=== PATIENT | male | born 1985 | race Caucasian/White ===

== ENCOUNTER 2018-10-20 12:04 | Emergency (ER) | payer MEDICAID, SELFPAY ==
[2018-10-20 12:06] VITALS: BP 157/87; PULSE 70; RESP 16; TEMP 36.8; O2SAT 97
--- NOTE | 2018-10-20 12:15 | DI.RAD_ITS ---
SYMPTOMS/DIAGNOSIS: STUCK WITH PIECE OF PLYWOOD, RIGHT MID FOREARM, ? FOREIGN BODY RIGHT FOREARM: Two views were obtained. No bony abnormality seen. No definite foreign body seen. If there is a high clinical suspicion of foreign body, additional evaluation with ultrasound could be considered.
--- NOTE | 2018-10-20 12:17 | ED.GENADUL_ITS ---
Discharge Plan Disposition Patient Disposition: HOME Condition: Improving Discharge Details Chief Complaint: Laceration Clinical Impression: Foreign body (FB) in soft tissue Primary Care Provider: Ling Yi ED Provider: Stefani Blair Home Meds and New Rx's Prescriptions: New cephalexin [Keflex] 500 mg capsule 500 mg PO QID 10 Days Qty: 40 RF: 0 Continued meclizine 25 MG tablet,chewable 25 mg PO Q6H PRN (Reason: Dizziness) Qty: 15 RF: 0 gabapentin 300 MG capsule 100 mg PO TID RF: 0 escitalopram oxalate [Lexapro] 10 MG tablet 10 mg PO DAILY RF: 0 tizanidine 6 MG capsule 6 mg PO QID RF: 0 Discharge Instructions Instructions: Soft Tissue Foreign Body (ED), Puncture Wound (ED) Additional Instructions: Take the antibiotics until finished. Keep wound clean, dry and covered. Follow-up with your primary care doctor in 2 days for wound reevaluation. Return immediately to the emergency department any worsening or concerning symptoms such as fever, increased pain, redness, swelling or red streaking up the arm. Discharge Data Discharge Physician: Stefani Blair Medical Decision Making 33-year-old male who presents with possible piece of wood foreign body in mid forearm while work day. There is a tender linear palpable indurated possible foreign body subcutaneous at the mid forearm just proximal to the open puncture wound. Unclear if this is a definite foreign body. Will obtain a.m. x-ray and reassess. Tetanus up-to-date 1315 --x-ray negative for foreign body. Ultrasound obtained for further evaluation and this did note an echogenic foreign body consistent with likely a piece of wood in the area of pain. Able to make a 2 cm superficial incision and remove the piece of wood successfully. Area was irrigated well and loosely closed with Steri-Strips. Patient sent with prescription for Keflex. He is instructed on good wound care. He is instructed to follow with his primary care doctor and return here at any time if worse. HPI General Mode of arrival: ambulatory . Date/Time Provider Initiated Documentation: 10/20/18 12:07 . Limitations to Documentation: no limitations . Information obtained by: patient . HPI Narrative: Patient is a 33-year-old male presents with possible piece of wood foreign body within forearm that he sust ained while working with plywood today. Patient states a piece of plywood he believes came off and punctured his mid forearm and is now still present under the skin. Tetanus up-to-date. Related Data Home Medications Medication Instructions Recorded Confirmed escitalopram oxalate [Lexapro] 10 mg PO DAILY 06/03/16 10/20/18 gabapentin 100 mg PO TID 06/03/16 10/20/18 tizanidine 6 mg PO QID 06/03/16 10/20/18 meclizine 25 mg PO Q6H PRN #15 tab.chew 12/24/16 10/20/18 cephalexin [Keflex] 500 mg PO QID 10 Days #40 cap 10/20/18 Previous Rx's Medication Instructions Recorded meclizine 25 mg PO Q6H PRN #15 tab.chew 12/24/16 cephalexin [Keflex] 500 mg PO QID 10 Days #40 cap 10/20/18 Allergies Allergy/AdvReac Type Severity Reaction Status Date / Time No Known Allergies Allergy Unverified 10/20/18 12:13 General Stated Complaint: Laceration ROSALVA: 4 Review of Systems Review of Systems All systems reviewed & are unremarkable except as noted in HPI and below PFSH Medical History Compression of intervertebral disc (Acute) Surgical History History of tonsillectomy (Chronic) Social History Smoking/Tobacco Use Status: Current every day Alcohol Intake: current Alcohol Intake frequency: holidays/special occasions only Drug use: Never Do you feel safe at home: Yes Do you feel safe in your relationship?: Yes Exam Const General: cooperative, healthy appearing and no acute distress HENMT Head: normal to inspection Mouth: oral mucosae normal Eyes General: appearance normal, both eyes and all related structures Neck Neck: normal visual inspection Resp Effort & Inspection: normal respiratory effort and able to speak in complete sentences Cardio Rate: regular rate Skin General skin exam: no rashes or lesions noted Neuro General: alert, awake and oriented x3 Motor: muscle tone normal throughout Extrem Other: Superficial abrasions and a 2 mm circular superficial open wound noted on right volar mid forearm. There is an area that is hard, linear and palpable just proximal to the open wound extending approximately 3 cm of right forearm directly under the skin and tender to palpation. Psych Appearance: grossly normal Affect: normal affect Course Vital Signs Temperature 98.2 F 10/20/18 12:06 Pulse 70 10/20/18 12:06 Respiratory Rate 16 10/20/18 12:06 Blood Pressure 157/87 H 10/20/18 12:06 Pulse Oximetry 97 10/20/18 12:06 Temperature 98.2 F 10/20/18 12:06 Temperature Source Skin 10/20/18 12:06 Pulse 70 10/20/18 12:06 Respiratory Rate 16 10/20/18 12:06 Respiratory Effort Non-Labored 10/20/18 12:11 Blood Pressure 157/87 H 10/20/18 12:06 Pulse Oximetry 97 10/20/18 12:06 Oxygen Delivery Method Room Air 10/20/18 12:06 Oxygen Flow Rate 0 10/20/18 12:06 Pain Level 7 10/20/18 12:06 Procedures Foreign Body Removal Time Out Performed: yes Site: right Description of foreign body: other (wood) Sedation/Analgesia: other (local infiltration with lidocaine 1% w/o epi - 5cc) Technique: removal with forceps (2cm superficial incision made with #11 blade) Confirmed by:: direct visualization Complications: none Post-procedure exam: awake, alert Neurovascular: normal distal pulse
--- NOTE | 2018-10-20 13:22 | DI.US_ITS ---
SYMPTOMS/DIAGNOSIS: ASSESS FOR PIECE OF WOOD IN MID FOREARM SOFT TISSUE ULTRASOUND, RIGHT FOREARM: Soft tissue ultrasound was performed to evaluate an area of suspected foreign body in the superficial soft tissues of the right forearm. There is a questionable palpable abnormality and this corresponds to an elongated echogenic focus identified ultrasonographically. The findings are consistent with foreign body; this is likely to represent a plywood splinter by history.
== END 2018-10-20 13:51 | disposition home or self-care (01) ==
PROVIDERS: Emergency Provider Physician Assistant
DX: S50.851A Superficial foreign body of right forearm, initial encounter (principal); W45.8XXA Other foreign body or object entering through skin, initial encounter
CPT/HCPCS: 10120; 76881; 73090

== ENCOUNTER 2019-02-15 08:08 | Emergency (ER) | payer MEDICAID, SELFPAY ==
[2019-02-15 08:13] VITALS: BP 137/78; PULSE 70; RESP 18; TEMP 37; O2SAT 99
--- NOTE | 2019-02-15 08:34 | ED.GENADUL_ITS ---
Discharge Plan Disposition Patient Disposition: HOME Discharge Details Chief Complaint: Orthopedic Clinical Impression: Flexor tenosynovitis of finger Primary Care Provider: Ling Yi ED Provider: Shaheed Aquino Home Meds and New Rx's Prescriptions: New amoxicillin-pot clavulanate [Augmentin] 875-125 mg tablet 1 tab PO BID Qty: 20 RF: 0 Continued meclizine 25 MG tablet,chewable 25 mg PO Q6H PRN (Reason: Dizziness) Qty: 15 RF: 0 naproxen 250 mg Tablet 250 mg PO BID PRNRF: 0 gabapentin 300 MG capsule 100 mg PO TID RF: 0 escitalopram oxalate [Lexapro] 10 MG tablet 10 mg PO DAILY RF: 0 tizanidine 6 MG capsule 6 mg PO QID RF: 0 Discharge Instructions Instructions: How to Stop Smoking (ED), Cigarette Smoking and Your Health (GEN), Tenosynovitis (ED) Additional Instructions: Please take the full course of antibiotics as prescribed. Follow-up with orthopedics if symptoms persist greater than 24 hours. Return to the ER for any worsening or new concerning symptoms. Referrals: Efrain Betancourt MD [ [facility] STAFF PHYSICIAN] - Discharge Data Discharge Date/Time-TO BE ENTERED AT DEPARTURE: 02/15/19 08:59 Medical Decision Making 33-year-old male here 1 day after accidentally puncturing his left hand just proximal to fourth metacarpal with a metal tool. Tenderness and swelling about the puncture site and involving the proximal fourth digit. Digit is not sausage appearing. He is able to flex and extend his fingers fully but does have discomfort on passive hyperextension. No systemic symptoms. Suspect early flexor tenosynovitis. Plan to treat with Augmentin and have the patient follow-up with orthopedics. xray of the hand interpreted by me: No fracture, no air in the soft tissue Tetanus is up-to-date. Smoking cessation was discussed with the patient. He is motivated to quit. I encouraged him to establish primary care follow-up at the [place] for assistance in this. Usual and customary discharge instructions were provided. Patient understands importance of timely follow-up. HPI General Mode of arrival: ambulatory . Date/Time Provider Initiated Documentation: 02/15/19 08:32 . Limitations to Documentation: no limitations . Information obtained by: patient . HPI Narrative: 33-year-old male here with swelling and pain of his left hand after he sustained puncture wound working with a metal tool at home yesterday. Patient notes increased swelling and pain of the left fourth digit. Pain is worse when he extends his fourth digit. No associated fever. Tetanus is up-to-date per patient and prior medical record notes 2011. Related Data Home Medications Medication Instructions Recorded Confirmed escitalopram oxalate [Lexapro] 10 mg PO DAILY 06/03/16 02/15/19 gabapentin 100 mg PO TID 06/03/16 02/15/19 tizanidine 6 mg PO QID 06/03/16 02/15/19 meclizine 25 mg PO Q6H PRN #15 tab.chew 12/24/16 02/15/19 amoxicillin-pot clavulanate 1 tab PO BID #20 tab 02/15/19 [Augmentin] naproxen 250 mg PO BID PRN 02/15/19 02/15/19 Previous Rx's Medication Instructions Recorded meclizine 25 mg PO Q6H PRN #15 tab.chew 12/24/16 amoxicillin-pot clavulanate 1 tab PO BID #20 tab 02/15/19 [Augmentin] Allergies Allergy/AdvReac Type Severity Reaction Status Date / Time No Known Allergies Allergy Unverified 10/20/18 12:13 General Stated Complaint: Orthopedic ROSALVA: 4 Review of Systems Constitutional Denies fever(s) ENT Denies dizziness Gastrointestinal Denies nausea Integumentary/Breasts Reports as per HPI Neurologic Denies dizziness PFSH Medical History Compression of intervertebral disc (Acute) Surgical History History of tonsillectomy (Chronic) Social History Smoking/Tobacco Use Status: Current every day Tobacco Type: cigarettes Alcohol Intake: current Alcohol Intake frequency: holidays/special occasions only Drug use: Never Substance use type: does not use Do you feel safe at home: Yes Do you feel safe in your relationship?: Yes Exam Const General: cooperative and no acute distress Cardio Rate: regular rate Rhythm: regular rhythm Skin Rashes: rashes noted (mild erythema about puncture wound and palm hand) Trauma: puncture (tiny prox lt 4th MCP) Neuro General: alert, awake and tone normal Extrem General: edema Left upper extremity: hand Details: normal capillary refill, neuromotor exam normal, neurosensory exam normal, tendon exam normal, tenderness Location: of the 4th digit (prox to MCP with swelling) and swelling Location: of the 4th digit Location: at the MCP joint Course Vital Signs Temperature 37.0 C 02/15/19 08:13 Pulse 70 02/15/19 08:13 Respiratory Rate 18 02/15/19 08:13 Blood Pressure 137/78 02/15/19 08:13 Pulse Oximetry 99 02/15/19 08:13 Temperature 37.0 C 02/15/19 08:13 Temperature Source Skin 02/15/19 08:13 Pulse 70 02/15/19 08:13 Respiratory Rate 18 02/15/19 08:13 Respiratory Effort Non-Labored 02/15/19 08:21 Blood Pressure 137/78 02/15/19 08:13 Blood Pressure Position Sitting 02/15/19 08:13 Pulse Oximetry 99 02/15/19 08:13 Oxygen Delivery Method Room Air 02/15/19 08:13 Oxygen Flow Rate 0 02/15/19 08:13 Pain Level 4 02/15/19 08:13
[2019-02-15] MEDS: Amoxicillin 875/Clav. 125 TAB PO (08:36)
--- NOTE | 2019-02-15 08:57 | DI.RAD_ITS ---
SYMPTOMS/DIAGNOSIS: PUNCTURE WOUND LEFT HAND: No fracture or dislocation is seen. IMPRESSION: Negative left hand.
--- NOTE | 2019-02-15 09:20 | DI.VRAD_ITS ---
EXAM: XR Left Hand EXAM DATE/TIME: 02/15/2019 8:34 AM CLINICAL HISTORY: 33 years old, male; Pain; Hand; Left; Patient HX: Puncture wound center of palm TECHNIQUE: Imaging protocol: XR Left hand. Views: 3 or more views. COMPARISON: US soft tissue extremity 10/20/2018 1:33 PM FINDINGS: Bones/joints: Normal. There is no evidence of acute fracture.There is no evidence of malalignment or dislocation. Soft tissues: Normal. IMPRESSION: No acute findings. Dictated and Authenticated by: Gracie Estrada MD. Ordering:REYNALDO Hummel MD
== END 2019-02-15 08:59 | disposition home or self-care (01) ==
PROVIDERS: Emergency Provider Student in an Organized Health Care Education/Training Program
DX: M65.842 Other synovitis and tenosynovitis, left hand (principal); W26.8XXA Contact with other sharp object(s), not elsewhere classified, initial encounter
CPT/HCPCS: 99283; 73130

== ENCOUNTER 2021-06-17 09:21 | Emergency (ER) | payer MEDICAID, SELFPAY ==
[2021-06-17 09:30] VITALS: BP 143/73; PULSE 60; RESP 18; TEMP 36.7; O2SAT 98
[2021-06-17] MEDS: Tetracaine 0.5% 4 ML BTL (09:46)
[2021-06-17] MEDS: Balanced Salt Solution 15 ML BTL (09:46)
[2021-06-17] MEDS: Fluorescein STRIPS 100/BOX 1 MG (09:46)
--- NOTE | 2021-06-17 09:58 | W.ED.GENAD ---
Discharge Plan Disposition Patient Disposition: HOME Condition: Stable Discharge Details Clinical Impression: Foreign body in cornea, left eye, initial encounter, Corneal abrasion, left Primary Care Provider: Ling Yi ED Provider: Radha Guevara Home Meds and New Rx's Prescriptions: No Action meclizine 25 MG tablet,chewable 25 mg PO Q6H PRN (Reason: Dizziness) Qty: 15 RF: 0 naproxen 250 mg Tablet 250 mg PO BID PRNRF: 0 amoxicillin-pot clavulanate [Augmentin] 875-125 mg tablet 1 tab PO BID Qty: 20 RF: 0 bupropion HCl 100 mg Tablet 100 mg PO DAILY RF: 0 gabapentin 300 MG capsule 100 mg PO TID RF: 0 escitalopram oxalate [Lexapro] 10 MG tablet 10 mg PO DAILY RF: 0 tizanidine 6 MG capsule 6 mg PO QID RF: 0 Discharge Instructions Instructions: Corneal Abrasion (ED), Eye Foreign Body (ED) Additional Instructions: I was unable to completely remove the foreign body noted. Use antibiotic ointment as directed place a ribbon to the lower eyelid 4 times daily while awake. Please follow-up with [facility] eye [facility] call on Saturday to make an appointment within the next few days. You may patch your left eye or wear sunglasses. Try not to rub your eye. [address] [id number] Please take Tylenol or Ibuprofen with food every 4-6 hours as needed for pain and swelling. Stand Alone Forms: Work Release Discharge Data Discharge Date/Time-TO BE ENTERED AT DEPARTURE: 06/17/21 10:31 Medical Decision Making 34-year-old male with foreign body to left eye presumed metal after working with some metal on . He reports waking up with irritation today. Foreign body visualized to the left pupil. Attempted to remove manually with 18-gauge needle bevel which was unsuccessful. Partial removal was obtained there is still some retained foreign body. We will place patient on antibiotics ointment and referred to [facility] eye [facility] on Saturday. This text was generated using [employer] system, please disregard any oddities of phrase or misspellings. HPI General Mode of arrival: ambulatory. Date/Time Provider Initiated Documentation: 06/17/21 09:47. Limitations to Documentation: no limitations. Information obtained by: patient and RN notes reviewed. HPI Narrative: 5-year-old male presents to the ER chief complaint of possible foreign body to the left eye. Patient reports he was working with metal on woke up this morning with some irritation. He also reports some blurry vision. Upon initial exam he does have a small foreign body noted to the central of his left pupil. Conjunctive is injected. Related Data Home Medications Medication Instructions Recorded Confirmed escitalopram oxalate [Lexapro] 10 mg PO DAILY 06/03/16 06/17/21 gabapentin 100 mg PO TID 06/03/16 06/17/21 tizanidine 6 mg PO QID 06/03/16 02/15/19 meclizine 25 mg PO Q6H PRN #15 tab.chew 12/24/16 06/17/21 amoxicillin-pot clavulanate 1 tab PO BID #20 tab 02/15/19 [Augmentin] naproxen 250 mg PO BID PRN 02/15/19 06/17/21 bupropion HCl 100 mg PO DAILY 06/17/21 06/17/21 Previous Rx's Medication Instructions Recorded meclizine 25 mg PO Q6H PRN #15 tab.chew 12/24/16 amoxicillin-pot clavulanate 1 tab PO BID #20 tab 02/15/19 [Augmentin] Allergies Allergy/AdvReac Type Severity Reaction Status Date / Time No Known Allergies Allergy Unverified 06/17/21 09:33 General Stated Complaint: EyeProblem ROSALVA: 4 Review of Systems All systems reviewed & are unremarkable except as noted in HPI and below Eyes Eyes: Reports irritation and Reports other (Foreign body sensation in the left eye) PFSH All Active Problems (Updated 06/17/21 @ 10:17 by Radha Guevara) Foreign body in cornea, left eye, initial encounter (Acute) Corneal abrasion, left (Acute) Medical History (Updated 06/17/21 @ 10:17 by Radha Guevara) Compression of intervertebral disc Surgical History History of tonsillectomy Social History Smoking/Tobacco Use Status: Current every day Tobacco Type: cigarettes Smoking risk assessment performed?: Yes Alcohol Intake: current Alcohol Intake frequency: holidays/special occasions only Drug use: Never Substance use type: does not use Do you feel safe at home: Yes Do you feel safe in your relationship?: Yes Exam Eyes Alignment and Position: alignment normal Periorbital: periorbital findings normal Eyelids: eyelids normal Conjunctivae: conjunctival abnormality left conjunctival injection Cornea: corneas abnormal on the left fluorescein used, abrasion central and at the following clock position (3 o clock) and foreign body metallic; without a rust ring and fluorescein used Pupils: PERRL Eyes/upper lids images: 1. Foreign body 2. Corneal abrasion Course Vital Signs Vital signs: Vital Signs Temperature 36.7 C 06/17/21 09:30 Pulse 60 06/17/21 09:30 Respiratory Rate 18 06/17/21 09:30 Blood Pressure 143/73 H 06/17/21 09:30 Pulse Oximetry 98 06/17/21 09:30 Temperature 36.7 C 06/17/21 09:30 Temperature Source Temporal Artery Scan 06/17/21 09:30 Pulse 60 06/17/21 09:30 Respiratory Rate 18 06/17/21 09:30 Respiratory Effort Non-Labored 06/17/21 09:36 Blood Pressure 143/73 H 06/17/21 09:30 Blood Pressure Position Sitting 06/17/21 09:30 Pulse Oximetry 98 06/17/21 09:30 Oxygen Delivery Method Room Air 06/17/21 09:30 Oxygen Flow Rate 0 06/17/21 09:30 Procedures FB Removal Eye Time Out performed: No Location: eye (L) Topical anesthetic used: tetracaine Foreign body: metal Evidence of corneal penetration: No Technique: irrigation, cotton tip swab and needle (18 ga) Procedure performed under: direct visualization with magnification Post-procedure medication: ophthalmic antibiotic Patient tolerated procedure: well Complications: incomplete foreign body removal PAWSS Have you Been Recently Intoxicated or Drunk Within the Last 30 days?: No Have you Ever Experienced Previous Episodes of Alcohol Withdrawal?: No Have you ever Experienced Withdrawal Seizures?: No Have you ever Experienced Delirium Tremens(DT)s?: No Have you ever undergone Alcohol Rehabilitation Treatment (i.e, inpt ot outpatient treatment programs)?: No Have you ever Experienced Blackouts?: No Have you ever Combined Alcohol with other Downers within the last 90 days?: No Have you ever Combined Alcohol with any other Substance of Abuse during the last 90 days?: No Positive Blood Alcohol level on Presentation? [PCS.BAL]: No Evidence of Increased Autonomic Activity (i.e. HR>120, tremor, sweating, agitation, nausea)?: No Result: 0
[2021-06-17] MEDS: Erythromycin Ophth Oint 3.5 GM TUBE OP (10:25)
== END 2021-06-17 10:31 | disposition home or self-care (01) ==
PROVIDERS: Emergency Provider Registered Nurse Emergency
DX: T15.02XA Foreign body in cornea, left eye, initial encounter (principal); X58.XXXA Exposure to other specified factors, initial encounter
CPT/HCPCS: 65220

== ENCOUNTER 2021-09-18 18:33 | Emergency (ER) | payer MEDICAID, SELFPAY ==
[2021-09-18 18:39] VITALS: BP 158/89; PULSE 77; RESP 18; O2SAT 97
--- NOTE | 2021-09-18 18:58 | ED.GENADUL_ITS ---
Discharge Plan Disposition Patient Disposition: HOME Condition: Improving Discharge Details Clinical Impression: Cellulitis of finger, right Primary Care Provider: Ling Yi ED Provider: Efrain Parker Home Meds and New Rx's Prescriptions: New cephalexin 500 mg capsule 500 mg PO TID 7 Days Qty: 21 0RF Continued meclizine 25 MG tablet,chewable 25 mg PO Q6H PRN (Reason: Dizziness) Qty: 15 0RF naproxen 250 mg Tablet 250 mg PO BID PRN0RF bupropion HCl 100 mg Tablet 100 mg PO DAILY 0RF gabapentin 300 MG capsule 100 mg PO TID 0RF escitalopram oxalate [Lexapro] 10 MG tablet 10 mg PO DAILY 0RF tizanidine 6 MG capsule 6 mg PO QID 0RF Discontinued amoxicillin-pot clavulanate [Augmentin] 875-125 mg tablet 1 tab PO BID Qty: 20 0RF Discharge Instructions Instructions: Cellulitis (ED) Additional Instructions: Elevate above the level of the heart to decrease pain and swelling. Tylenol as needed for discomfort. Take antibiotics every 6 hours for the first 4 doses and then 3 times daily until finished. Return for any acute concerns. Warm soaks to help speed healing. Medical Decision Making 36-year-old male who abraded the dorsum of his right index finger days ago and now has 2 days of right index finger erythema and swelling. No proximal lymphangitic spread, no systemic signs or symptoms of infection. He does have a developing cellulitis and will merit treatment with oral antibiotics. He is stable and appropriate for discharge home at this time. HPI General Mode of arrival: ambulatory . Date/Time Provider Initiated Documentation: 09/18/21 18:34 . Limitations to Documentation: no limitations . Information obtained by: patient . History of Present Illness 36 year old M presents to the emergency department with the chief complaint of Right index finger swelling and erythema, described as mild, Quality is described as dull and constant, and is localized to the right and upper extremity. Patient reports no radiation. Patient started experiencing this hour(s) and it has been constant. improves with No relieving factors improve symptom(s), No exacerbating factors reported . Patient notes denies fever/chills and weakness. Patient did receive the following treatments prior to arrival, none Related Data Home Medications Medication Instructions Recorded Confirmed escitalopram oxalate 10 mg tablet 10 mg PO DAILY 06/03/16 09/18/21 (Lexapro) gabapentin 300 mg capsule 100 mg PO TID 06/03/16 09/18/21 tizanidine 6 mg capsule 6 mg PO QID 06/03/16 09/18/21 meclizine 25 mg chewable tablet 25 mg PO Q6H PRN #15 tab.chew 12/24/16 06/17/21 naproxen 250 mg tablet 250 mg PO BID PRN 02/15/19 09/18/21 bupropion HCl 100 mg tablet 100 mg PO DAILY 06/17/21 09/18/21 cephalexin 500 mg capsule 500 mg PO TID 7 Days #21 cap 09/18/21 Previous Rx's Medication Instructions Recorded meclizine 25 mg chewable tablet 25 mg PO Q6H PRN #15 tab.chew 12/24/16 cephalexin 500 mg capsule 500 mg PO TID 7 Days #21 cap 09/18/21 Allergies Allergy/AdvReac Type Severity Reaction Status Date / Time No Known Allergies Allergy Unverified 09/18/21 18:42 General Stated Complaint: Cellulitis ROSALVA: 4 Review of Systems Narrative: No fever or chills. No numbness or tingling. Otherwise well. PFSH All Active Problems (Updated 09/18/21 @ 19:00 by Efrain Parker MD) Cellulitis of finger, right (Acute) Medical History (Updated 09/18/21 @ 19:00 by Efrain Parker MD) Compression of intervertebral disc Surgical History History of tonsillectomy Social History Smoking/Tobacco Use Status: Current every day Tobacco Type: cigarettes Smoking risk assessment performed?: Yes Alcohol Intake: current Alcohol Intake frequency: holidays/special occasions only Drug use: Never Substance use type: does not use Do you feel safe at home: Yes Do you feel safe in your relationship?: Yes Exam Narrative Exam Narrative: GEN: awake, alert, oriented 3. Pleasant, well groomed, interactive. HEAD: Normocephalic, atraumatic EYES: PERRL, EOMI EXT: Full ROM, right index finger erythematous and mild swelling. Abrasion overlying proximal phalanx dorsal aspect, 1 to 2 mm in diameter Neuro: Grossly normal neurologic exam, conversant, interactive. Psych: Speech fluent, thoughts congruent, affect normal Course Vital Signs Vital signs: Vital Signs Pulse 77 09/18/21 18:39 Respiratory Rate 18 09/18/21 18:39 Blood Pressure 158/89 H 09/18/21 18:39 Pulse Oximetry 97 09/18/21 18:39 Pulse 77 09/18/21 18:39 Respiratory Rate 18 09/18/21 18:39 Respiratory Effort Non-Labored 09/18/21 18:44 Blood Pressure 158/89 H 09/18/21 18:39 Blood Pressure Position Sitting 09/18/21 18:39 Pulse Oximetry 97 09/18/21 18:39 Oxygen Delivery Method Room Air 09/18/21 18:39 Oxygen Flow Rate 0 09/18/21 18:39
[2021-09-18 19:09] VITALS: BP 158/89; PULSE 77; RESP 18; O2SAT 97
[2021-09-18] MEDS: Cephalexin 500 MG CAP, 4 CAPS/BTL PO (19:10)
== END 2021-09-18 19:09 | disposition home or self-care (01) ==
PROVIDERS: Emergency Provider Emergency Medicine
DX: L03.011 Cellulitis of right finger (principal)
CPT/HCPCS: 99283

== ENCOUNTER 2021-10-01 08:24 | Emergency (ER) | payer MEDICAID, SELFPAY ==
[2021-10-01 08:29] VITALS: BP 157/81; PULSE 65; RESP 16; TEMP 36.6; O2SAT 99
--- NOTE | 2021-10-01 08:30 | DI.RAD_ITS ---
Exam(s) XR FINGER RT INDEX EXAM: XR FINGER RT INDEX CLINICAL HISTORY: recent cellulitis, now dropped drill on finger. TECHNIQUE: 2D digital imaging was performed. COMPARISON: CR XR hand LT complete from 02/15/2019 FINDINGS: 3 views There is soft tissue swelling around the region of the proximal interphalangeal joint. There is no e vidence of fracture or dislocation nor radiopaque foreign body. No osseous lesions nor erosions. No radiographic evidence of osteomyelitis. IMPRESSION: Soft tissue swelling. No fracture nor other significant osseous findings.. No radiopaque foreign manjit dy. DATA REPOSITORY: RADIATION DOSE DELIVERED:
--- NOTE | 2021-10-01 08:59 | W.ED.GENAD ---
Discharge Plan Disposition Patient Disposition: HOME Condition: Stable Discharge Details Clinical Impression: Contusion of right index finger Primary Care Provider: Tate Cowan ED Provider: Benjie Ca Home Meds and New Rx's Prescriptions: New sulfamethoxazole-trimethoprim [Bactrim DS] 800-160 mg tablet 1 tab PO BID 9 Days Qty: 18 0RF Continued meclizine 25 MG tablet,chewable 25 mg PO Q6H PRN (Reason: Dizziness) Qty: 15 0RF naproxen 250 mg Tablet 250 mg PO BID PRN0RF bupropion HCl 100 mg Tablet 100 mg PO DAILY 0RF gabapentin 300 MG capsule 100 mg PO TID 0RF escitalopram oxalate [Lexapro] 10 MG tablet 10 mg PO DAILY 0RF tizanidine 6 MG capsule 6 mg PO QID 0RF Discharge Instructions Instructions: Cellulitis (ED) Additional Instructions: X-ray does not reveal any obvious bony abnormality. While this very well may be simply trauma, difficult to say if there is not a mild amount of residual infection. Bactrim as directed. Warm soaks and/or compresses every 2 hours for 20 minutes. Please watch for new or worsening symptoms and return to the ER for any concerns. Lastly, I have given you the name and number of our orthopedic team, if symptoms not improving over the next 7-10 days with conservative measures, please follow-up with them. Referrals: Antolin Hui MD [ [facility]FF PHYSICIAN] - Medical Decision Making 36-year-old gentleman, [id number], reports finger infection on 09-18, seen in the ER and finished a regimen of Keflex. Reports symptoms had almost completely resolved but yesterday dropped impact wrench on his hand. Denies any other injury, fever, numbness, tingling, weakness. Plan is to obtain x-ray and reassess X-ray unremarkable for any bony abnormality. Discussed findings with patient. He declined splint. Difficult to ascertain whether this is simply trauma related or if there could be a component of residual infection. Patient feels as though there may still be a small infection and would be open to initiating antibiotics. Plan is to give 10 days worth of Bactrim, discussed conservative measures, and will refer to orthopedics if no improvement with conservative measures. Encouraged to return to the ER for new or worsening symptoms. This documentation was generated using [employer] system, please disregard any oddities of phrase or misspellings. Medical Records Medical records reviewed: Yes I reviewed the patient's medical records. Imaging Data Radiologic Study: Attestation: I personally reviewed and interpreted this imaging study as follows: Imaging: X-Ray Radiologist's impression: PROCEDURE INFORMATION: Exam: XR Right Finger(s) Exam date and time: 10/01/2021 8:53 AM Age: 36 years old Clinical indication: Injury or trauma; Other: Recent cellulitis, now dropped drill on finger; Blunt trauma (contusions or hematomas); Right; Index finger TECHNIQUE: Imaging protocol: XR Right fingers. Views: Minimum 2 views. COMPARISON: CR XR forearm RT 10/20/2018 12:23 PM FINDINGS: Bones/joints: There is no evidence of acute fracture.There is no evidence of malalignment or dislocation. Soft tissues: Soft tissue swelling of the finger. IMPRESSION: 1. Soft tissue swelling of the finger. 2. There is no evidence of acute fracture.There is no evidence of malalignment or dislocation. [facility] General Mode of arrival: ambulatory. Date/Time Provider Initiated Documentation: 10/01/21 08:25. Limitations to Documentation: no limitations. Information obtained by: patient. History of Present Illness 36 year old M presents to the emergency department with the chief complaint of R index finger pain, described as moderate, with intensity rated at 4. Quality is described as aching, and is localized to the right and upper extremity. Patient reports no radiation. Patient started experiencing this day(s) (1) and it has been constant. improves with No relieving factors improve symptom(s), Movement worsens symptoms . Patient notes no other symptoms.. Patient did receive the following treatments prior to arrival, none Related Data Home Medications Medication Instructions Recorded Confirmed escitalopram oxalate 10 mg tablet 10 mg PO DAILY 06/03/16 10/01/21 (Lexapro) gabapentin 300 mg capsule 100 mg PO TID 06/03/16 10/01/21 tizanidine 6 mg capsule 6 mg PO QID 06/03/16 10/01/21 meclizine 25 mg chewable tablet 25 mg PO Q6H PRN #15 tab.chew 12/24/16 10/01/21 naproxen 250 mg tablet 250 mg PO BID PRN 02/15/19 10/01/21 bupropion HCl 100 mg tablet 100 mg PO DAILY 06/17/21 10/01/21 sulfamethoxazole 800 1 tab PO BID 9 Days #18 tab 10/01/21 mg-trimethoprim 160 mg tablet (Bactrim DS) Previous Rx's Medication Instructions Recorded meclizine 25 mg chewable tablet 25 mg PO Q6H PRN #15 tab.chew 12/24/16 sulfamethoxazole 800 1 tab PO BID 9 Days #18 tab 10/01/21 mg-trimethoprim 160 mg tablet (Bactrim DS) Allergies Allergy/AdvReac Type Severity Reaction Status Date / Time No Known Allergies Allergy Unverified 10/01/21 08:33 General Stated Complaint: Cellulitis ROSALVA: 4 Review of Systems Constitutional Constitutional: Denies fever(s) and Denies weakness Musculoskeletal Musculoskeletal: Denies deformity, Reports arthralgias, Denies numbness, Reports stiffness and Denies tingling Integumentary/Breasts Skin/Breast: Denies rash Neurologic Neurologic: Denies numbness, Denies tingling and Denies weakness PFSH All Active Problems Cellulitis of finger, right (Acute) Contusion of right index finger (Acute) Medical History Compression of intervertebral disc Surgical History History of tonsillectomy Social History Smoking/Tobacco Use Status: Current every day Tobacco Type: cigarettes Smoking risk assessment performed?: Yes Alcohol Intake: current Alcohol Intake frequency: holidays/special occasions only Drug use: Never Substance use type: does not use Do you feel safe at home: Yes Do you feel safe in your relationship?: Yes Exam Const General: cooperative, healthy appearing, comfortable and no acute distress Orientation: alert and awake HENCO Head: normal to inspection, normocephalic and atraumatic Eyes Conjunctivae: conjunctivae normal Neck Neck: normal visual inspection, trachea midline and supple Resp Effort & Inspection: normal respiratory effort and able to speak in complete sentences Cardio Rate: regular rate Rhythm: regular rhythm Skin Rashes: no rashes Neuro General: patient alert, patient awake, moves all extremities and no focal motor deficits Cognition: normal cognition Speech: speech normal Gait: normal gait Motor: muscle tone normal throughout Sensory Exam: no sensory deficits noted Extrem General: capillary refill normal Other: Right hand index finger extensor aspect of the PIP with minimal swelling, erythema, tenderness. Full extension, near full flexion but slightly limited secondary to pain and swelling. Neuro, vascular, tendon intact. Skin intact. No drainage, lymphangitic streaking, induration or fluctuance. Normal radial pulse and capillary refill. Psych Appearance: grossly normal Mental Status: mental status grossly normal Course Vital Signs Vital signs: Vital Signs Temperature 36.6 C 10/01/21 08:29 Pulse 65 10/01/21 08:29 Respiratory Rate 16 10/01/21 08:29 Blood Pressure 157/81 H 10/01/21 08:29 Pulse Oximetry 99 10/01/21 08:29 Temperature 36.6 C 10/01/21 08:29 Temperature Source Temporal Artery Scan 10/01/21 08:29 Pulse 65 10/01/21 08:29 Respiratory Rate 16 10/01/21 08:29 Respiratory Effort 10/01/21 08:29 Blood Pressure 157/81 H 10/01/21 08:29 Blood Pressure Position Sitting 10/01/21 08:29 Pulse Oximetry 99 10/01/21 08:29 Oxygen Delivery Method Room Air 10/01/21 08:29 Oxygen Flow Rate 0 10/01/21 08:29 Pain Level 5 10/01/21 08:29
--- NOTE | 2021-10-01 09:03 | DI.VRAD_ITS ---
PROCEDURE INFORMATION: Exam: XR Right Finger(s) Exam date and time: 10/01/2021 8:53 AM Age: 36 years old Clinical indication: Injury or trauma; Other: Recent cellulitis, now dropped drill on finger; Blunt trauma (contusions or hematomas); Right; Index finger TECHNIQUE: Imaging protocol: XR Right fingers. Views: Minimum 2 views. COMPARISON: CR XR forearm RT 10/20/2018 12:23 PM FINDINGS: Bones/joints: There is no evidence of acute fracture.There is no evidence of malalignment or dislocation. Soft tissues: Soft tissue swelling of the finger. IMPRESSION: 1. Soft tissue swelling of the finger. 2. There is no evidence of acute fracture.There is no evidence of malalignment or dislocation. Dictated and Authenticated by: Gracie Estrada MD. Ordering:SHAR Waldrop MD
[2021-10-01] MEDS: Sulfameth/Trimeth DS, 2 TABS/BTL 1 TAB PO (09:09)
== END 2021-10-01 09:13 | disposition home or self-care (01) ==
PROVIDERS: Emergency Provider Physician Assistant; PCP Nurse Practitioner Family
DX: S60.021A Contusion of right index finger without damage to nail, initial encounter (principal); W22.8XXA Striking against or struck by other objects, initial encounter; L03.011 Cellulitis of right finger
CPT/HCPCS: 99283; 73140

== ENCOUNTER 2022-02-01 17:58 | Emergency (ER) | payer MEDICAID, SELFPAY ==
--- NOTE | 2022-02-01 18:00 | DI.RAD_ITS ---
Exam(s) XR ANKLE LT COMPLETE EXAM: XR ANKLE LT COMPLETE CLINICAL HISTORY: pain, swelling TECHNIQUE: 2D digital imaging was performed. Three views. COMPARISON: No exams were available for comparison FINDINGS: BONES: No acute fracture is present. No bony destructive lesion is seen. JOINTS:The ankle mortise is normally aligned. SOFT TISSUE: Swelling around both malleoli. IMPRESSION: Soft tissue swelling. No fracture. DATA REPOSITORY: RADIATION DOSE DELIVERED:
[2022-02-01 18:04] VITALS: BP 178/98; PULSE 77; RESP 16; TEMP 36.9; O2SAT 98
--- NOTE | 2022-02-01 18:20 | ED.GENADUL_ITS ---
Discharge Plan Disposition Patient Disposition: HOME Condition: Improving Discharge Details Clinical Impression: Left ankle sprain Primary Care Provider: Tate Cowan ED Provider: Efrain Parker Home Meds and New Rx's Prescriptions: Continued naproxen 250 mg Tablet 250 mg PO BID PRN bupropion HCl 100 mg Tablet 100 mg PO DAILY gabapentin 300 MG capsule 100 mg PO TID escitalopram oxalate [Lexapro] 10 MG tablet 10 mg PO DAILY tizanidine 6 MG capsule 6 mg PO QID Discharge Instructions Instructions: Ankle Sprain (ED) Additional Instructions: Elevate above the level of the heart to reduce pain and swelling. Continue to ice to reduce pain and swelling. Walking boot as needed 4 to 7 days time. May remove for bathing and at bedtime. Return to the ER for any acute concern. Medical Decision Making 36-year-old male twisted his ankle yesterday. Progressive pain, swelling, bruising over the course of the day today. He has been able to weight-bear and ambulate. On exam he is bruised and swollen primarily over the lateral malleolus. Referred for x-ray. X-ray without evidence of bony fractures. Consistent with ankle sprain. We will place the patient in a walking boot. He understands process to wean to normal ambulation. He is stable for discharge HPI General Mode of arrival: ambulatory . Date/Time Provider Initiated Documentation: 02/01/22 17:59 . Limitations to Documentation: no limitations . Information obtained by: patient . History of Present Illness 36 year old M presents to the emergency department with the chief complaint of Left ankle swelling and pain after twisting it yesterday, described as moderate, Quality is described as dull and constant, and is localized to the left and lower extremity. Patient reports no radiation. Patient started experiencing this hour(s) and it has been intermittent. Rest improves symptom(s), Movement worsens symptoms . Patient notes denies weakness. Related Data Home Medications Medication Instructions Recorded Confirmed escitalopram oxalate 10 mg tablet 10 mg PO DAILY 06/03/16 02/01/22 (Lexapro) gabapentin 300 mg capsule 100 mg PO TID 06/03/16 02/01/22 tizanidine 6 mg capsule 6 mg PO QID 06/03/16 02/01/22 naproxen 250 mg tablet 250 mg PO BID PRN 02/15/19 02/01/22 bupropion HCl 100 mg tablet 100 mg PO DAILY 06/17/21 02/01/22 Allergies Allergy/AdvReac Type Severity Reaction Status Date / Time No Known Allergies Allergy Unverified 02/01/22 18:08 General Stated Complaint: Orthopedic ROSALVA: 4 Review of Systems Narrative: No other injury, 4 systems reviewed and otherwise negative PFSH All Active Problems (Updated 02/01/22 @ 18:57 by Efrain Parker MD) Left ankle sprain (Acute) Medical History (Updated 02/01/22 @ 18:57 by Efrain Parker MD) Compression of intervertebral disc Surgical History History of tonsillectomy Social History Smoking/Tobacco Use Status: Current every day Tobacco Type: cigarettes Smoking risk assessment performed?: Yes Alcohol Intake: current Alcohol Intake frequency: holidays/special occasions only Drug use: Never Substance use type: does not use Do you feel safe at home: Yes Do you feel safe in your relationship?: Yes Exam Narrative Exam Narrative: GEN: awake, alert, oriented 3. Pleasant, well groomed, interactive. HEAD: Normocephalic, atraumatic EXT: Full ROM, left ankle is edematous, lateral greater than medial. There is ecchymosis present that tracks to the heel. Neuro: Grossly normal neurologic exam, conversant, interactive. Psych: Speech fluent, thoughts congruent, affect normal Course Vital Signs Vital signs: Vital Signs Temperature 36.9 C 02/01/22 18:04 Pulse 77 02/01/22 18:04 Respiratory Rate 16 02/01/22 18:04 Blood Pressure 178/98 H 02/01/22 18:04 Pulse Oximetry 98 02/01/22 18:04 Temperature 36.9 C 02/01/22 18:04 Pulse 77 02/01/22 18:04 Respiratory Rate 16 02/01/22 18:04 Respiratory Effort 02/01/22 18:07 Blood Pressure 178/98 H 02/01/22 18:04 Blood Pressure Position Sitting 02/01/22 18:04 Pulse Oximetry 98 02/01/22 18:04 Oxygen Delivery Method Room Air 02/01/22 18:04 Oxygen Flow Rate 0 02/01/22 18:04 Pain Level 8 02/01/22 18:06
--- NOTE | 2022-02-01 18:55 | NUR.NOTE ---
Nursing Note: Pt to DI via w/c and return, no change in complaints.
--- NOTE | 2022-02-01 19:20 | DI.VRAD_ITS ---
PROCEDURE INFORMATION: Exam: XR Left Ankle Exam date and time: 02/01/2022 6:54 PM Age: 36 years old Clinical indication: Pain; Left; Patient HX: Rolled ankle yesterday TECHNIQUE: Imaging protocol: Radiologic exam of the Left ankle. Views: 3 or more views. COMPARISON: US soft tissue extremity 10/20/2018 1:33 PM FINDINGS: Bones/joints: Normal. Soft tissues: Soft tissue swelling. IMPRESSION: No displaced fractures or dislocations. Soft tissue swelling. Dictated and Authenticated by: Landen Yarbrough MD. Ordering:RONEN Zuniga MD
--- NOTE | 2022-02-01 19:26 | NUR.NOTE ---
Nursing Note: Walking boot applied to left ankle, pt verbalized understanding of use & application of boot.
== END 2022-02-01 19:32 | disposition home or self-care (01) ==
PROVIDERS: Emergency Provider Emergency Medicine; PCP Nurse Practitioner Family
DX: S93.402A Sprain of unspecified ligament of left ankle, initial encounter (principal); F17.210 Nicotine dependence, cigarettes, uncomplicated; X50.1XXA Overexertion from prolonged static or awkward postures, initial encounter
CPT/HCPCS: 99283; 73610; 99282

== ENCOUNTER 2022-04-04 16:17 | Emergency (ER) | payer MEDICAID, SELFPAY ==
[2022-04-04 16:21] VITALS: BP 163/93; PULSE 74; RESP 16; TEMP 36.8; O2SAT 97
--- NOTE | 2022-04-04 17:45 | DI.RAD_ITS ---
Exam(s) XR KNEE RT 3V AP,LAT,JOHNNY EXAM: XR KNEE RT 3V AP,LAT,JOHNNY CLINICAL HISTORY: pain and swelling TECHNIQUE: COMPARISON: No exams were available for comparison FINDINGS: Three views were obtained. There appears to be soft tissue swelling anterior to the patella. No jessica ss knee joint effusion seen on the lateral view. No bony abnormality seen. IMPRESSION: RADIATION DOSE DELIVERED: Total DLP
[2022-04-04 18:01] LABS: Abs Immature Grans 0.03 10^3/uL (0.0-0.06); Absolute Basophil Count 0.04 10^3/uL (0.0-0.2); Absolute Eosinophil Count 0.11 10^3/uL (0.0-0.7); Absolute Lymphocyte Count 2.81 10^3/uL (1.2-3.4); Absolute Monocyte Count 0.67 10^3/uL (0.1-0.8); Basophils % 0.4; HCT 43.4 % (40.0-50.0); HGB 15.1 g/dL (13.5-17.5); Immature Grans % 0.3; Lymphocytes % 26.1; MCH 30.7 pg (27.0-33.0); MCHC 34.8 % (32.0-36.0); MCV 88 fL (80-95); MPV 9.6 fL (8.0-11.0); Monocytes % 6.2; Platelet Count 313 10^3/uL (130-400); RBC 4.92 10^6/uL (4.36-5.78); RDW 11.8 % (11.8-14.1); RDW-SD 37.9 fL; WBC 10.76 10^3/uL (4.4-10.8)
[2022-04-04 18:17] LABS: ALT 29 U/L (16-63); AST 15 U/L (15-37); Albumin 4.6 g/dL (3.4-5.0); Alkaline Phosphatase 73 U/L (46-116); Anion Gap 7.8 mmol/L (3-11); BUN 17 mg/dL (7-18); Bilirubin, Total 0.5 mg/dL (0.2-1.0); C-Reactive Protein 1.48 mg/dL (0.0-0.3); CO2 27.2 mmol/L (21.0-32.0); CREATININE 1.1 mg/dL (0.70-1.30); Chloride 103 mmol/L (98-107); Estimated GFR 90.34 (mL/min/1.73m2); Glucose 83 mg/dL (74-106); Potassium 4.1 mmol/L (3.5-5.1); Sodium 138 mmol/L (136-145)
[2022-04-04 18:27] LABS: Clarity Cloudy; Nucleated Cells 4062 uL (0)
[2022-04-04 18:28] LABS: Crystals (BF) No Crystals seen
[2022-04-04 18:36] LABS: Mononuclear Cells 8 %; Polynuclear Cells 92 %
--- NOTE | 2022-04-04 18:44 | DI.VRAD_ITS ---
PROCEDURE INFORMATION: Exam: XR Right Knee Exam date and time: 04/04/2022 18:18 Age: 36 years old Clinical indication: Other: Right knee pain and swelling TECHNIQUE: Imaging protocol: Radiologic exam of the Right knee. Views: 3 views. COMPARISON: US soft tissue extremity 10/20/2018 13:33 FINDINGS: Bones/joints: No acute fracture or subluxation. Soft tissues: Swelling in the anterior knee without a significant joint effusion. IMPRESSION: 1. No acute bony pathology. 2. Swelling in the anterior knee without a significant joint effusion. Dictated and Authenticated by: Jo Mcdaniels MD. Ordering:ISIDRO Mayberry MD
[2022-04-04] MEDS: Doxycycline Hyclate 100 MG CAP PO (18:55)
[2022-04-04] MEDS: Amoxicillin 875 MG TAB PO (18:55)
[2022-04-04 19:04] VITALS: BP 140/70; PULSE 64; RESP 18; TEMP 36.4; O2SAT 95
--- NOTE | 2022-04-05 16:06 | W.ED.GENAD ---
Discharge Plan Disposition Patient Disposition: HOME Condition: Stable Discharge Details Clinical Impression: Septic bursitis Primary Care Provider: Tate Cowan ED Provider: Shawanda Tellez Home Meds and New Rx's Prescriptions: New amoxicillin 875 mg tablet 875 mg PO BID Qty: 20 0RF doxycycline hyclate 100 mg capsule 100 mg PO BID Qty: 20 0RF Continued naproxen 250 mg Tablet 250 mg PO BID PRN bupropion HCl 100 mg Tablet 300 mg PO DAILY gabapentin 300 MG capsule 100 mg PO TID escitalopram oxalate [Lexapro] 10 MG tablet 20 mg PO DAILY tizanidine 6 MG capsule 6 mg PO QID Discharge Instructions Additional Instructions: Wear your knee immobilizer, elevate your leg is much as possible this will allow it to heal Take antibiotics as prescribed Yogurt daily while on antibiotics May apply warm compresses Recheck in 48 hours recommended Return earlier should you have new or worsening complaints including spreading redness, fever, pain Of placing an orthopedic Referrals: Johnson Granados MD [ [facility] STAFF PHYSICIAN] - 1 day Discharge Data Discharge Date/Time-TO BE ENTERED AT DEPARTURE: 04/04/22 19:12 Medical Decision Making CRP mildly elevated at 1.48, 92% white blood cell, no cholesterol, 4062 white blood cells noted We will treat with antibiotics, amoxicillin and doxycycline and place a new mobilizer with outpatient follow-up Patient is overall nontoxic in appearance Will follow-up closely in the outpatient setting Return precautions felipe and patient expressed understanding Recheck in 24 to 48 hours recommended with orthopedic referral Medical Records Medical records reviewed: Yes I reviewed the patient's medical records. Lab Data Lab results reviewed: Yes I reviewed the patient's lab results. HPI General Date/Time Provider Initiated Documentation: 04/04/22 16:42. HPI Narrative: This otherwise healthy 36-year-old gentleman presents with pain and swelling to right knee. States it started several days ago. States now he has some redness which is why he presents. He denies pain in the actual joint. Denies fever or chills. Denies history of similar symptoms in the past. Denies any trauma to the affected area. Related Data Home Medications Medication Instructions Recorded Confirmed escitalopram oxalate 10 mg tablet 20 mg PO DAILY 06/03/16 04/04/22 (Lexapro) gabapentin 300 mg capsule 100 mg PO TID 06/03/16 04/04/22 tizanidine 6 mg capsule 6 mg PO QID 06/03/16 04/04/22 naproxen 250 mg tablet 250 mg PO BID PRN 02/15/19 04/04/22 bupropion HCl 100 mg tablet 300 mg PO DAILY 06/17/21 04/04/22 amoxicillin 875 mg tablet 875 mg PO BID #20 tabs 04/04/22 doxycycline hyclate 100 mg capsule 100 mg PO BID #20 caps 04/04/22 Previous Rx's Medication Instructions Recorded amoxicillin 875 mg tablet 875 mg PO BID #20 tabs 04/04/22 doxycycline hyclate 100 mg capsule 100 mg PO BID #20 caps 04/04/22 Allergies Allergy/AdvReac Type Severity Reaction Status Date / Time No Known Allergies Allergy Unverified 04/04/22 16:26 General Stated Complaint: Orthopedic ROSALVA: 4 Review of Systems All systems reviewed & are unremarkable except as noted in HPI and below PFSH All Active Problems (Updated 04/04/22 @ 18:55 by VIANEY Santana) Septic bursitis (Acute) Medical History (Updated 04/04/22 @ 18:55 by VIANEY Santana) Compression of intervertebral disc Surgical History History of tonsillectomy Social History Smoking/Tobacco Use Status: Current every day Tobacco Type: cigarettes Smoking risk assessment performed?: Yes Alcohol Intake: current Alcohol Intake frequency: holidays/special occasions only Drug use: Never Substance use type: does not use Do you feel safe at home: Yes Do you feel safe in your relationship?: Yes Exam Const General: cooperative, comfortable and no acute distress Resp Effort & Inspection: normal respiratory effort Cardio Rate: regular rate Skin Rashes: rashes noted Full body images: 1. swelling, redness, warmth, no crepitus boggy prepatellar bursae Neuro General: patient alert and patient oriented x3 Extrem Other: Boggy, red, warm prepatellar bursa, range of motion of the knee intact without any obvious evidence of septic arthritis Approximately 4 inches of erythema surrounding bursa, no crepitus, neurovascularly intact Course Vital Signs Vital signs: Vital Signs Temperature 36.8 C 04/04/22 16:21 Pulse 74 04/04/22 16:21 Respiratory Rate 16 04/04/22 16:21 Blood Pressure 163/93 H 04/04/22 16:21 Pulse Oximetry 97 04/04/22 16:21 Temperature 36.4 C 04/04/22 19:04 Temperature Source Oral 04/04/22 16:21 Pulse 64 04/04/22 19:04 Respiratory Rate 18 04/04/22 19:04 Respiratory Effort Non-Labored 04/04/22 16:25 Blood Pressure 140/70 04/04/22 19:04 Blood Pressure Position Sitting 04/04/22 16:21 Pulse Oximetry 95 04/04/22 19:04 Oxygen Delivery Method Room Air 04/04/22 19:04 Oxygen Flow Rate 0 04/04/22 19:04 Pain Level 0 04/04/22 19:04 Lab/Test Results Lab/Test Results: 04/04/22 18:00 Synovial - Right Knee Body Fluid Culture - Preliminary 04/04/22 18:00 Synovial - Right Knee Gram Stain - Final Laboratory Tests Range/Units 04/04/22 04/04/22 04/04/22 17:54 17:54 18:00 WBC (4.4-10.8) 10^3/uL 10.76 RBC (4.36-5.78) 10^6/uL 4.92 Hgb (13.5-17.5) g/dL 15.1 Hct (40.0-50.0) % 43.4 MCV (80-95) fL 88 MCH (27.0-33.0) pg 30.7 MCHC (32.0-36.0) % 34.8 RDW (11.8-14.1) % 11.8 Plt Count (130-400) 10^3/uL 313 MPV (8.0-11.0) fL 9.6 Immature Gran % 0.3 Neutrophils % 66.0 Lymphocytes % 26.1 Monocytes % 6.2 Eosinophils % 1.0 Basophils % 0.4 Nucleated RBC % (0.0-0.3) % 0.0 Absolute Neutrophils (1.2-6.7) 10^3/uL 7.10 H Absolute Lymphocytes (1.2-3.4) 10^3/uL 2.81 Absolute Monocytes (0.1-0.8) 10^3/uL 0.67 Absolute Eosinophils (0.0-0.7) 10^3/uL 0.11 Absolute Basophils (0.0-0.2) 10^3/uL 0.04 Sodium (136-145) mmol/L 138 Potassium (3.5-5.1) mmol/L 4.1 Chloride (98-107) mmol/L 103 Carbon Dioxide (21.0-32.0) mmol/L 27.2 Anion Gap (3-11) mmol/L 7.8 BUN (7-18) mg/dL 17 Creatinine (0.70-1.30) mg/dL 1.1 Est GFR (CKD-EPI 2020) (mL/min/1.73m2) 90.34 Glucose (74-106) mg/dL 83 Calcium (8.5-10.1) mg/dL 9.0 Total Bilirubin (0.2-1.0) mg/dL 0.5 AST (15-37) U/L 15 ALT (16-63) U/L 29 Alkaline Phosphatase (46-116) U/L 73 C-Reactive Protein (0.0-0.3) mg/dL 1.48 H Total Protein (6.4-8.2) g/dL 8.0 Albumin (3.4-5.0) g/dL 4.6 Fluid Source Fluid Color Fluid Clarity Fluid WBC (0) uL Fld Polynuclear WBCs % % Fluid Mononuclear Cell % Fluid Crystals No Crystals seen Fluid Crystal Source R Knee Range/Units 04/04/22 18:00 WBC (4.4-10.8) 10^3/uL RBC (4.36-5.78) 10^6/uL Hgb (13.5-17.5) g/dL Hct (40.0-50.0) % MCV (80-95) fL MCH (27.0-33.0) pg MCHC (32.0-36.0) % RDW (11.8-14.1) % Plt Count (130-400) 10^3/uL MPV (8.0-11.0) fL Immature Gran % Neutrophils % Lymphocytes % Monocytes % Eosinophils % Basophils % Nucleated RBC % (0.0-0.3) % Absolute Neutrophils (1.2-6.7) 10^3/uL Absolute Lymphocytes (1.2-3.4) 10^3/uL Absolute Monocytes (0.1-0.8) 10^3/uL Absolute Eosinophils (0.0-0.7) 10^3/uL Absolute Basophils (0.0-0.2) 10^3/uL Sodium (136-145) mmol/L Potassium (3.5-5.1) mmol/L Chloride (98-107) mmol/L Carbon Dioxide (21.0-32.0) mmol/L Anion Gap (3-11) mmol/L BUN (7-18) mg/dL Creatinine (0.70-1.30) mg/dL Est GFR (CKD-EPI 2020) (mL/min/1.73m2) Glucose (74-106) mg/dL Calcium (8.5-10.1) mg/dL Total Bilirubin (0.2-1.0) mg/dL AST (15-37) U/L ALT (16-63) U/L Alkaline Phosphatase (46-116) U/L C-Reactive Protein (0.0-0.3) mg/dL Total Protein (6.4-8.2) g/dL Albumin (3.4-5.0) g/dL Fluid Source R Knee Fluid Color Yellow Fluid Clarity Cloudy Fluid WBC (0) uL 4062 Fld Polynuclear WBCs % % 92 Fluid Mononuclear Cell % 8 Fluid Crystals Fluid Crystal Source Procedures Joint Aspiration/Injection Joint Asp./Inject. 1: Time Out Performed: Yes Side of body: right Joint Aspirated: knee (prepatellar bursae) Ultrasound Guidance: No Local Anesthetic: Lidocaine 1% and with Epi Amount of anesthesia used (mL): 5 Needle Size Used: 18G Fluid Obtained: viscous Total fluid obtained (mL): 3 Patient Tolerated Procedure: well Complications: none
== END 2022-04-04 19:12 | disposition home or self-care (01) ==
PROVIDERS: Emergency Provider Physician Assistant; PCP Nurse Practitioner Family
DX: M71.162 Other infective bursitis, left knee (principal)
CPT/HCPCS: 20610; 36415; 73562; 80053; 99283; 85025; 86140; 87070; 87205; 89051; 89060

== ENCOUNTER 2022-08-07 13:33 | Emergency (ER) | payer MEDICAID, SELFPAY ==
[2022-08-07 13:44] VITALS: BP 143/85; PULSE 74; RESP 17; TEMP 36.2; O2SAT 97
--- NOTE | 2022-08-07 13:59 | W.ED.GENAD ---
Discharge Plan Disposition Patient Disposition: Home Discharge Details Clinical Impression: Pain and swelling of right knee Primary Care Provider: Tate Cowan ED Provider: Tate Kessler Home Meds and New Rx's Prescriptions: No Action naproxen 250 mg Tablet 250 mg PO BID PRN bupropion HCl 100 mg Tablet 300 mg PO DAILY gabapentin 300 MG capsule 100 mg PO TID escitalopram oxalate [Lexapro] 10 MG tablet 20 mg PO DAILY tizanidine 6 MG capsule 6 mg PO QID Discharge Instructions Instructions: Knee Pain (ED) Additional Instructions: You were seen in the emergency department for your right knee pain. Your x-ray showed no sign of any fractures. If you develop fevers worsening pain or have any other concerns please return to the emergency department. The orthopedic team will call you for follow-up. For your pain please take medications as follows: 1. Take acetaminophen (Tylenol), 1,000 mg (two 500 mg tabs) every 6 hours 2. Take ibuprofen (Advil), 400 mg every 6 hours. Discharge Discharge Data Discharge Date/Time-TO BE ENTERED AT DEPARTURE: 08/07/22 14:53 Medical Decision Making This is a quite well-appearing afebrile and not tachycardic 36-year-old male with right knee pain and swelling status post fall onto concrete now with traumatic effusion. His plain film is negative for any acute osseous abnormalities. He is not anticoagulated so my suspicion for worsening effusion is low. I am not concerned for septic joint as he has no significant erythema and he has good range of motion in his right knee. No pain out of proportion to suggest necrotizing soft tissue infection. He has no history of malignancy so doubt pathological fracture so we will defer advanced imaging at this point time. I have asked health pulling unit floorhand Sergio to arrange for orthopedic follow-up for the patient in the next 10 days. I advised him to ice elevate and use an Dayo wrap on his leg. I offered him an Dayo wrap but he said that he had one at home. I advised return to the ED for worsening pain or swelling. Chronic conditions affecting the care of the patient: Chronic right knee pain History obtained from an outside historian: N/A External record review: N/A Diagnostic interpretations performed by me: I independently reviewed right knee radiographs showing no acute osseous abnormalities. Medications: Oral analgesia using [id number] medications. Social determinants of health affecting disposition: N/A Management discussed with: N/A Treatment/interventions considered: None Response to therapies provided: To be determined HPI General Date/Time Provider Initiated Documentation: 08/07/22 13:57. HPI Narrative: This is a 36-year-old male with a history of right knee effusion and bursitis now in the emergency department with right knee pain. He reportedly fell down onto some concrete in his garage earlier today and has pain in his right knee. He denies any head strike and loss of consciousness. He has not been nauseous nor vomiting. He does not take any blood thinners. He did not strike his head. He has no other complaints but is concerned about his right knee swelling. Related Data Home Medications Medication Instructions Recorded Confirmed escitalopram oxalate 10 mg tablet 20 mg PO DAILY 06/03/16 08/07/22 (Lexapro) gabapentin 300 mg capsule 100 mg PO TID 06/03/16 08/07/22 tizanidine 6 mg capsule 6 mg PO QID 06/03/16 08/07/22 naproxen 250 mg tablet 250 mg PO BID PRN 02/15/19 08/07/22 bupropion HCl 100 mg tablet 300 mg PO DAILY 06/17/21 08/07/22 Allergies Allergy/AdvReac Type Severity Reaction Status Date / Time No Known Allergies Allergy Unverified 08/07/22 13:47 General Stated Complaint: Orthopedic ROSALVA: 4 PFSH All Active Problems (Updated 08/07/22 @ 14:37 by Tate Kessler MD) Pain and swelling of right knee (Acute) Medical History (Updated 08/07/22 @ 14:37 by Tate Kessler MD) Compression of intervertebral disc Surgical History History of tonsillectomy Social History Smoking/Tobacco Use Status: Current every day Tobacco Type: cigarettes Smoking risk assessment performed?: Yes Alcohol Intake: current Alcohol Intake frequency: holidays/special occasions only Drug use: Never Substance use type: does not use Do you feel safe at home: Yes Do you feel safe in your relationship?: Yes Exam Narrative Exam Narrative: General: Well-appearing in no acute distress speaking in complete sentences. Head: Normocephalic, atraumatic Ear, nose, mouth, throat: Grossly normal inspection. Normal voice, handling secretions normally. Neck: Trachea midline. Cardiovascular: Well-perfused distal extremities. Respiratory: Nonlabored respiration. Gastrointestinal: Nondistended abdomen. Musculoskeletal: Mild right anterior knee small effusion. No limitations in range of motion. No significant laxity on valgus and varus stress testing. No tenderness in calf nor patient femur. Skin: Normal for age and race, grossly normal temperature and turgor. No acute rash. Neurologic: Alert and appropriate, no apparent acute deficits. Psychiatric: Mood and manner are appropriate. Grooming and personal hygiene are appropriate. Course Vital Signs Vital signs: Vital Signs Temperature 36.2 C L 08/07/22 13:44 Pulse 74 08/07/22 13:44 Respiratory Rate 17 08/07/22 13:44 Blood Pressure 143/85 H 08/07/22 13:44 Pulse Oximetry 97 08/07/22 13:44 Temperature 36.2 C L 08/07/22 13:44 Temperature Source Tympanic 08/07/22 13:44 Pulse 74 08/07/22 13:44 Respiratory Rate 17 08/07/22 13:44 Respiratory Effort Normal 08/07/22 13:45 Blood Pressure 143/85 H 08/07/22 13:44 Blood Pressure Position Sitting 08/07/22 13:44 Pulse Oximetry 97 08/07/22 13:44 Oxygen Delivery Method Room Air 08/07/22 13:44 Oxygen Flow Rate 0 08/07/22 13:44 Pain Level 2 08/07/22 13:46 PAWSS Have you Been Recently Intoxicated or Drunk Within the Last 30 days?: No Have you Ever Experienced Previous Episodes of Alcohol Withdrawal?: No Have you ever Experienced Withdrawal Seizures?: No Have you ever Experienced Delirium Tremens(DT)s?: No Have you ever undergone Alcohol Rehabilitation Treatment (i.e, inpt ot outpatient treatment programs)?: No Have you ever Experienced Blackouts?: No Have you ever Combined Alcohol with other Downers within the last 90 days?: No Have you ever Combined Alcohol with any other Substance of Abuse during the last 90 days?: No Result: 0
--- NOTE | 2022-08-07 14:26 | DI.RAD_ITS ---
Exam(s) XR KNEE RT 3V AP,LAT,JOHNNY EXAM: XR KNEE RT 3V AP,LAT,JOHNNY CLINICAL HISTORY: Right knee pain status post fall on concrete. TECHNIQUE: 2D digital imaging was performed of the right knee. Three views obtained. AP, lateral an d PA tunnel views were obtained. COMPARISON: CR,XR XR KNEE RT 3V AP,LAT,JOHNNY from 04/04/2022 FINDINGS: BONES: No acute fracture is present. No bony destructive lesion is seen. JOINTS: The knee is normally aligned. No joint effusion is seen. SOFT TISSUE: There is soft tissue swelling anterior to the patella. IMPRESSION: 1. No acute fracture or dislocation. 2. Soft tissue swelling anterior to the patella. DATA REPOSITORY: RADIATION DOSE DELIVERED:
[2022-08-07] MEDS: Acetaminophen 500 MG TAB 1000 MG PO (14:51)
[2022-08-07] MEDS: Ibuprofen 600 MG TAB PO (14:52)
== END 2022-08-07 14:53 | disposition home or self-care (01) ==
PROVIDERS: Emergency Provider Emergency Medicine; PCP Nurse Practitioner Family
DX: M25.461 Effusion, right knee (principal)
CPT/HCPCS: 73562; 99283

== ENCOUNTER 2022-10-14 14:37 | Emergency (ER) | payer MEDICAID, SELFPAY ==
[2022-10-14 14:40] VITALS: BP 159/84; PULSE 63; RESP 15; TEMP 36.3; O2SAT 99
--- NOTE | 2022-10-14 14:44 | ED.GENADUL_ITS ---
Discharge Plan Disposition Patient Disposition: Home Discharge Details Clinical Impression: Laceration of face, Immunization, tetanus-diphtheria Primary Care Provider: Tate Cowan ED Provider: Tate Kessler Home Meds and New Rx's Prescriptions: Continued naproxen 250 mg Tablet 250 mg PO BID PRN bupropion HCl 100 mg Tablet 300 mg PO DAILY gabapentin 300 MG capsule 100 mg PO TID escitalopram oxalate [Lexapro] 10 MG tablet 20 mg PO DAILY tizanidine 6 MG capsule 6 mg PO QID Discharge Instructions Instructions: Facial Laceration (ED) Additional Instructions: Please read all of the information that accompanies these instructions. You were seen in the emergency department for your facial laceration. This should heal well under a Band-Aid. Please return to the emergency department if you develop fevers chills or any foul-smelling drainage from your wound. Medical Decision Making This is an overall quite well-appearing afebrile and not tachycardic 37-year-old male with superficial right-sided facial laceration that is hemostatic and will not require primary closure. Will allow patient's wound to heal by secondary intention. The laceration is superficial and does not communicate with the nares. No proptosis to suggest retrobulbar hematoma so I did not feel that the patient required assessment of his intraocular pressure. I suspect that he had some transient neuropraxia from the trauma to his infraorbital nerve. Given that his numbness is resolving and he is no trauma overlying the infraorbital nerve my suspicion for any permanent sequela is exceedingly low. He cannot recall the exact date of his most recent tetanus immunization and given injury with screwdriver bit will update the patient's tetanus status. He is obese and I have given him return indications in the event that his wound becomes infected for any fevers foul-smelling drainage or any significant erythema around his wound. I cleaned the patient at bedside before applying a Band-Aid. After discussing return indications and receiving his prophylaxis against tetanus patient was discharged with return indications. HPI General Date/Time Provider Initiated Documentation: 10/14/22 14:40 . HPI Narrative: This is a 37-year-old male arriving via EMS following a laceration he sustained just prior to arrival to the right-side of his face. Patient reports that he was using a screwdriver bit and inadvertently hit his face. He did not lose consciousness. His laceration was bleeding prior to arrival but this was controlled prehospital. He has not had epistaxis. He does not feel that any of his teeth are loose. He does not feel that he is chipped any of his teeth. He denies any malocclusion. He is seeing well and has no changes in his vision. He had some numbness surrounding the area of his trauma and extending down into his teeth. He cannot recall the exact date of his last tetanus. He is not sure whether or not it has been updated in the past 5 years. Related Data Home Medications Medication Instructions Recorded Confirmed escitalopram oxalate 10 mg tablet 20 mg PO DAILY 06/03/16 10/14/22 (Lexapro) gabapentin 300 mg capsule 100 mg PO TID 06/03/16 10/14/22 tizanidine 6 mg capsule 6 mg PO QID 06/03/16 10/14/22 naproxen 250 mg tablet 250 mg PO BID PRN 02/15/19 10/14/22 bupropion HCl 100 mg tablet 300 mg PO DAILY 06/17/21 10/14/22 Allergies Allergy/AdvReac Type Severity Reaction Status Date / Time No Known Allergies Allergy Unverified 10/14/22 14:43 General Stated Complaint: Laceration ROSALVA: 4 PFSH All Active Problems (Updated 10/14/22 @ 14:51 by Tate Kessler MD) Laceration of face (Acute) Immunization, tetanus-diphtheria (Acute) Prepatellar bursitis, right knee (Acute) Medical History (Updated 10/14/22 @ 14:51 by Tate Kessler MD) Compression of intervertebral disc Surgical History History of tonsillectomy Social History Smoking/Tobacco Use Status: Current every day Tobacco Type: cigarettes Smoking risk assessment performed?: Yes Alcohol Intake: current Alcohol Intake frequency: holidays/special occasions only Drug use: Never Substance use type: does not use Current gender identity: male Do you feel safe at home: Yes Do you feel safe in your relationship?: Yes Exam Narrative Exam Narrative: General: Well-appearing in no acute distress speaking in complete sentences. Head: Normocephalic, atraumatic. Eye: Pupils equal, round reactive to light. Extraocular eye movements intact. No conjunctival injection. No scleral icterus. Ear, nose, mouth, throat: On the right side of the patient's nose inferior to his eye just lateral to his right naris there is a hemostatic approximately 3 mm superficial laceration. No epistaxis. No obvious communication of the laceration into the nose. No obvious dental avulsions. No loose teeth. Normal voice, handling secretions normally. Neck: Trachea midline. Cardiovascular: Well-perfused distal extremities. Respiratory: Nonlabored respiration. Gastrointestinal: Nondistended abdomen. Musculoskeletal: No edema. Moving all 4 extremities spontaneously. Skin: Normal for age and race, grossly normal temperature and turgor. No acute rash. Neurologic: Alert and appropriate, no apparent acute deficits. Psychiatric: Mood and manner are appropriate. Grooming and personal hygiene are appropriate. Course Vital Signs Vital signs: Vital Signs Temperature 36.3 C L 10/14/22 14:40 Pulse 63 10/14/22 14:40 Respiratory Rate 15 10/14/22 14:40 Blood Pressure 159/84 H 10/14/22 14:40 Pulse Oximetry 99 10/14/22 14:40 Temperature 36.3 C L 10/14/22 14:40 Temperature Source Temporal Artery Scan 10/14/22 14:40 Pulse 63 10/14/22 14:40 Respiratory Rate 15 10/14/22 14:40 Respiratory Effort Normal 10/14/22 14:42 Blood Pressure 159/84 H 10/14/22 14:40 Blood Pressure Position Sitting 10/14/22 14:40 Pulse Oximetry 99 10/14/22 14:40 Oxygen Delivery Method Room Air 10/14/22 14:40 Oxygen Flow Rate 0 10/14/22 14:40 Pain Level 5 10/14/22 14:40
[2022-10-14] MEDS: Tetanus & Diphtheria Tox,ADULT 0.5 ML VIAL IM (14:59)
== END 2022-10-14 14:59 | disposition home or self-care (01) ==
PROVIDERS: Emergency Provider Emergency Medicine; PCP Nurse Practitioner Family
DX: S01.81XA Laceration without foreign body of other part of head, initial encounter (principal); W22.8XXA Striking against or struck by other objects, initial encounter; Z23 Encounter for immunization
CPT/HCPCS: 90471; 99284

== ENCOUNTER 2023-08-26 13:06 | Outpatient (REF) | payer MEDICAID, SELFPAY | END 2023-08-26 13:07 | disposition home or self-care (01) | LOC: LBN 13:06 | PROVIDERS: PCP Nurse Practitioner Family; Visit Provider Physician Assistant | DX: J02.9 Acute pharyngitis, unspecified (principal) | CPT/HCPCS: 87070 ==

== ENCOUNTER 2024-08-21 07:07 | Day surgery (SDC) | payer OTHER, SELFPAY ==
[2024-08-21 07:30] VITALS: BP 143/92; PULSE 66; RESP 18; TEMP 36.3; O2SAT 98
--- NOTE | 2024-08-21 08:08 | ANES.PREOP_ITS ---
General Info Date of Service Date Performed: 08/21/24 Height: 5 ft 10 in Weight: 140.3 kg Body Mass Index (BMI): 44.4 Surgical Procedure: Operation Date: 08/21/24 08:40 Proposed Procedure Side Surgeon p Excision Pterygium Without Graft Left Zeferino Melendez MD Meds Allergies and Home Medications Allergies Allergy/AdvReac Type Severity Reaction Status Date / Time No Known Allergies Allergy Verified 08/21/24 07:43 Home Medication ?Medication ?Instructions ?Recorded escitalopram oxalate 10 mg tablet 20 mg PO DAILY 06/03/16 (Lexapro) gabapentin 300 mg capsule 300 mg PO BID 06/03/16 naproxen 250 mg tablet 500 mg PO BID PRN 02/15/19 bupropion HCl 100 mg tablet 300 mg PO DAILY 06/17/21 tizanidine 4 mg capsule 4 mg PO BID PRN 08/14/24 Current Visit Medications: Current Medications Generic Name Dose Route Start Last Admin Trade Name Freq PRN Reason Stop Dose Admin Mitomycin 2 mg/ Sterile Water 0 mg 08/21/24 06:00 8 ml TP 09/20/24 05:59 DIRECTED [facility] Thrombin/Fibrinogen/Aprotinin/CaCl 2 ml 08/21/24 06:00 Thrombin/Fibrinog/Aprotin/Calc 2 Ml Syringe TP 09/20/24 05:59 DIRECTED [facility] PFS Active Problems Active Problems: Problem Status Onset Code Progressive peripheral pterygium of left eye Acute H11.052 Prepatellar bursitis, right knee Acute M70.41 Medical History Medical History Depression Compression of intervertebral disc Surgical History Surgical History History of tonsillectomy Tobacco Smoking/Tobacco Use Status: Former Tobacco Use Alcohol Alcohol Intake: current Alcohol intake frequency: holidays/special occasions only Substance Use Substance use: Never Substance use type: does not use Vital Signs and Lab Results Vital Signs Most Recent Vital Signs in EMR: Most Recent Vital Signs Temp Pulse Resp BP Pulse Ox 36.3 C L 66 18 143/92 H 98 08/21/24 07:30 08/21/24 07:30 08/21/24 07:30 08/21/24 07:30 08/21/24 07:30 Lab Results Blood Type / Crossmatch: No Data to Display Complete Blood Count: No Data to Display Complete Metabolic Panel: No Data to Display Liver Function Panel: No Data to Display Coagulation Panel: No Data to Display Cardiac Panel: No Data to Display Arterial Blood Gas: No Data to Display Venous Blood Gas: No Data to Display Pancreas Panel: No Data to Display Thyroid Panel: No Data to Display Infectious Disease: No Data to Display Blood Cultures: No Data to Display Toxicology Panel: No Data to Display Anesthesia Assessment and Plan Anesthesia History Personal History: No History of Anesthesia Complications Family History: No Family History of Anesthesia Complications Exercise Tolerance Exercise Tolerance: Metabolic Equivalents>4 Pertinent Negatives Pertinent Negatives: No Symptoms of GERD Cardiac & Pulmonary Exam Cardiac Exam: Normal S1/S2 Heart Sounds Pulmonary Exam: Clear Bilateral Breath Sounds Implantable Cardiac Device Does patient have a Pacemaker or an ICD?: No Airway Exam Known Difficult Airway: No Mallampati Class: 2 Mouth Opening: Normal (> 3cm) Thyromental Distance: Greater than 3 cm Neck Range of Motion: Full ROM Neck Circumference: Normal Teeth Condition: Normal Dentition ASA Classification ASA Score: ASA 2 Emergency Case?: No NPO Status NPO Status: NPO Clears >2 hours, Solids >8 hours Anesthesia Plan Resuscitation Status: Full Code Anesthesia Technique: MAC Anesthesia Airway Planned: Natural Airway Monitors Used: Standard Monitors
[2024-08-21 08:09] VITALS: BMI 44.4
--- NOTE | 2024-08-21 08:18 | W.PREOPHP ---
Assessment and Plan Assessment and plan (1) Progressive peripheral pterygium of left eye: Status: Acute Assessment and plan: Assessment: Progressive pterygium of the left eye. Plan: Pterygium excision with conjunctival autograft, left eye History of Present Illness History of Present Illness Chief Complaint: Growth on eye, left eye Narrative: The patient is a 38-year-old male who suffered a corneal foreign body accident several years ago, which was removed. However he has noticed the growth of tissue in the nasal corner of his left eye. He feels starting to blur his vision and he can feel it when he blinks. Review of Systems All systems reviewed & are unremarkable except as noted in HPI and below PFSH All Active Problems Progressive peripheral pterygium of left eye (Acute) Prepatellar bursitis, right knee (Acute) Medical History Depression Compression of intervertebral disc Surgical History History of tonsillectomy Social History Smoking/Tobacco Use Status: Former Tobacco Use Quit Date: 07/29/24 Smoking risk assessment performed?: Yes Alcohol Intake: current Alcohol Intake frequency: holidays/special occasions only Drug use: Never Substance use type: does not use Housing: apartment Current gender identity: male Do you feel safe at home: Yes Do you feel safe in your relationship?: Yes Meds Allergies and Home Medications Allergies Allergy/AdvReac Type Severity Reaction Status Date / Time No Known Allergies Allergy Verified 08/21/24 07:43 Home Medications ?Medication ?Instructions ?Recorded ?Confirmed ?Type escitalopram oxalate 10 mg tablet 20 mg PO DAILY 06/03/16 08/21/24 History (Lexapro) gabapentin 300 mg capsule 300 mg PO BID 06/03/16 08/21/24 History naproxen 250 mg tablet 500 mg PO BID PRN 02/15/19 08/21/24 History bupropion HCl 100 mg tablet 300 mg PO DAILY 06/17/21 08/21/24 History tizanidine 4 mg capsule 4 mg PO BID PRN 08/14/24 08/21/24 History Exam Eyes Other: Uncorrected visual acuity is 20/20 in each eye. Extract motility is normal. Slit-lamp examination is normal with the exception of a small round corneal scar on the left cornea. There is a pterygium nasally, that is encroaching in excess of 2 mm onto the nasal cornea. Examination of the right eye is completely unremarkable. Resp Auscultation: clear to auscultation bilaterally Cardio Rate: regular rate Rhythm: regular rhythm Results Last Vital Signs Temp 36.3 C L 08/21/24 07:30 Pulse 66 08/21/24 07:30 Resp 18 08/21/24 07:30 BP 143/92 H 08/21/24 07:30 Pulse Ox 98 08/21/24 07:30
[2024-08-21] MEDS: Balanced Salt Soln.-PLUS 500 ML BAG OP (08:44)
[2024-08-21] MEDS: Tetracaine 0.5% 4 ML BTL (08:45)
[2024-08-21] MEDS: Povidone-Iodine Ophth 30 ML BTL (08:45)
[2024-08-21] MEDS: Lidocaine 1% Pres-Free W/EPI 1/200,000 10 ML VIAL (08:55)
[2024-08-21] MEDS: Lidocaine 1% Pres-Free 5 ML VIAL (08:55)
[2024-08-21] MEDS: Prednisolone 1%, Moxifloxacin 0.5%, Bromfenac 0.09% 5.6ML BTL 5.6 ML (09:39)
[2024-08-21 09:47] VITALS: BP 130/87; PULSE 64; RESP 18; TEMP 36.4; O2SAT 98
--- NOTE | 2024-08-21 09:51 | W.PM.DSUDISC ---
Date of service: 08/21/24 Discharge Plan Disposition Patient Disposition: Home Discharge Details Attending Provider: Zeferino Melendez Primary Care Provider: Tate Cowan [place] Meds and New Rx's Prescriptions: No Action naproxen 250 mg Tablet 500 mg PO BID PRN bupropion HCl 100 mg Tablet 300 mg PO DAILY gabapentin 300 MG capsule 300 mg PO BID escitalopram oxalate [Lexapro] 10 MG tablet 20 mg PO DAILY tizanidine 4 mg capsule 4 mg PO BID PRN Discharge Orders Discharge Orders: Discharge Order (Routine); Ordered 08/21/24 Ordered By: Zeferino Melendez DS: Diagnosis Discharge Diagnosis (1) Progressive peripheral pterygium of left eye: Status: Resolved
--- NOTE | 2024-08-21 09:52 | ROE_ITS ---
Operative Note Operative Note PRE-OP DIAGNOSIS: Progressive pterygium, left eye POST-OP DIAGNOSIS: same PROCEDURE: Excision of pterygium with Mitomycin-C treatment and conjunctival autograft, left eye SURGEON: Zeferino Melendez ANESTHESIA TYPE: Local By Surgeon and MAC Refer to Anesthesia Record PATHOLOGY: none sent COMPLICATIONS: None Patient was transported to: same day Patient's condition: stable Indications: Progressive pterygium of the left eye Procedure Description: OPERATIVE REPORT PREOPERATIVE DIAGNOSIS: 1. Progressive pterygium of the left eye POSTOPERATIVE DIAGNOSIS: Same OPERATION: 1. Excision of pterygium with mitomycin C treatment and conjunctival autograft, left eye SURGEON: Zeferino Melendez MD, KIERAN ANESTHESIA: Monitored Anesthesia Care (MAC), with local sub-tenon's anesthetic infiltration COMPLICATIONS: None SPECIMENS: None INDICATIONS FOR PROCEDURE: The patient is a 38-year-old male with history of pterygium for the past several years which has been progressively enlarging, with discomfort and impairment on the visual axis. The option of pterygium excision was offered to the patient and he wished to proceed. See office notes for detailed information. PROCEDURE: The correct surgical eye was identified and marked as the left eye. Oral sedation was administered in the form of an Imprimis MKO Melt (midazolam 3mg/ketamine 25mg/ondansetron 2mg). The patient was brought to the operating room where cardiopulmonary monitoring was instituted and surgical time-out was performed. Topical anesthesia was administered and ophthalmic povidone-iodine 5% was instilled into the conjunctival fornices. The matt-ocular area was prepped with Betadine 10% solution and draped in the usual sterile fashion for intraocular surgery, including an aperture drape. A Tegaderm transparent film dressing was cut in half and used to cover the lashes and lid margins. Care was taken to sequester the lashes and lid margins under the Tegaderm dressing. A lid speculum was placed between the lids of the operative eye and the Tee [employer] Rev[employer] operating microscope was maneuvered into position. Tamiko scissors were then used to make a conjunctival buttonhole approximately 6mm posterior to the limbus in the inferonasal quadrant. Blunt dissection was carried out to expose bare sclera, and a blunt-tipped sub-tenon?s anesthesia cannula was introduced and passed posteriorly along the globe where non- preserved plain lidocaine was injected into posterior sub-Tenon?s space. Lidocaine 1% with epinephrine was then injected into the body of the pterygium, and also in the subconjunctival space superiorly, for preparation of the autograft. Karthik scissors were then passed under the body of the pterygium, confirming it was not attached to the globe, but only to the cornea. The body of the pterygium was then incised approximately 2 mm posterior to the limbus in an arcuate fashion and the conjunctiva allowed to retract. The head of the pterygium was retracted with a Weck sponge and light cautery was carried out on the scleral bed exposed by the conjunctival retraction. Toothed forceps were then used to peel as much of the head of the pterygium off the corneal surface as possible, without resorting to sharp dissection. However, there were significant areas of densely adherent pterygium to the corneal surface that had to be sharply dissected. Once the head of the pterygium was removed from the cornea, the 15 blade was used to carry out light debridement of the corneal surface until it was as smooth as possible. The cut edge of the conjunctiva was undermined with Karthik scissors, and thickened, fibrotic sub-tenon's capsule was excised from under the conjunctival margin. Next, a sponge soaked in Mitomycin-C 0.02% was held under the cut edge of the conjunctiva for 60 seconds, not allowing it to touch the scleral bed. The area was then copiously irrigated with at least 50 cc of balanced salt solution. Calipers were then used to measure the size of the conjunctival defect, which was 10 mm at the limbus, extending 15 mm posterior to the limbus to the retracted conjunctival edge, which measured 15 mm in superior to inferior dimension. These measurements were transposed to the superior conjunctiva, and marked with calipers. 2 radial cuts were made with Karthik scissors and the superior conjunctiva and the conjunctiva was undermined using a combination of blunt and sharp dissection with Karthik scissors, taking care to remove as much sub-tenon's capsule as possible. Once adequate dissection had occurred, the distal portion of the conjunctival autograft was cut approximately 15 to 16 mm posterior to the limbus, and then the conjunctival flap was reflected over the corneal surface. Residual [place] was cleaned from the underside of the conjunctival autograft using Karthik scissors. The conjunctival graft was then cut at the limbal margin, taking care to preserve the orientation of the tissue, which was then moved to the scleral bed, where it was massaged over the scleral bed to fill the extent of the conjunctival defect. TissueBlue was then carefully injected under the conjunctival graft and then massaged under the extent of the conjunctival graft. The edges of the conjunctival graft were tucked under the cut margins of the conjunctiva. Any bunched edges of the conjunctiva were sharply excised, as well as excess tissue glue. An 18 mm Kontur bandage contact lens was then placed on the eye . Several drops of ophthalmic povidone-iodine 5% were then applied to the eye followed by two drops of Imprimis combination prednisolone/moxifloxacin/nepafenac solution. The drapes were removed and a clear plastic protective eye shield was placed over the eye. The patient was then returned to [facility] Day Surgery in stable condition. Date of Procedure: 08/21/24
[2024-08-21 10:13] VITALS: BP 128/86; PULSE 56; RESP 18; TEMP 36.4; O2SAT 98
--- NOTE | 2024-08-21 15:05 | W.ANESPOSTOP ---
Postoperative Evaluation Date, Time and Location Date Performed: 08/21/24 Time Performed: 10:45 Patient Location: Day Surgery Unit Vital Signs Most Recent Imported Vital Signs: Most Recent Vital Signs Temp Pulse Resp BP Pulse Ox 36.4 C L 56 L 18 128/86 98 08/21/24 10:13 08/21/24 10:13 08/21/24 10:13 08/21/24 10:13 08/21/24 10:13 Pain Score Most Recent Pain Score: Most Recent Pain Score Pain Level 0 08/21/24 10:13 Assessment Mental Status: Awake (Alert & Oriented to Patient Baseline) Airway and Respiratory Function: Patent airway with normal (patient baseline) respiratory exam Cardiovascular Function: Hemodynamically Stable Hydration Status: Adequately Hydrated Nausea & Vomiting: No Nausea or Vomiting Pain: Pt. Denies Any Pain Peripheral Nerve Block: Patient did not receive a nerve block
== END 2024-08-21 10:20 | disposition home or self-care (01) ==
PROVIDERS: PCP Nurse Practitioner Family; Visit Provider Ophthalmology
PROC: (CPT 65420; principal; 2024-08-21 08:30)
DX: H11.052 Peripheral pterygium, progressive, left eye (principal)
CPT/HCPCS: 65426; 00123; J2003; J2004; J9280